=== PATIENT | female | born 1960 | race Caucasian/White ===

== ENCOUNTER 2023-12-27 11:27 | Day surgery (SDC) | payer MEDICARE, MEDICAID ==
[~2023-12-27] VITALS: Ht 167.6 cm; Wt 105.7 kg
[2023-12-27] VITALS (16 sets, daily range): BP systolic 167–216; BP diastolic 92–122; PULSE 17–91; RESP 12–19; TEMP 98.1; O2SAT 95–99
[~2023-12-27 11:27] MED LIST: ASPI-1265 PO; BAC10T PO; DOCU100C38 PO; HYDR12.522 PO; HYDR1TAB PO; IBUP-1984 PO; LISI40TA13 PO; NIA500ERT PO
[2023-12-27] MEDS ORDERED: ROSU20TA98 PO (12:24)
[2023-12-27] MEDS ORDERED: METF-1203 PO (12:24)
[2023-12-27] MEDS ORDERED: AMLO-381 PO (12:24)
[2023-12-27] MEDS ORDERED: NAPR220T67 PO (12:30)
[2023-12-27] MEDS: diphenhydrAMINE 25mg capsule PO PRN (12:37)
[2023-12-27] MEDS: normal saline 1,000 ML IV SCH (12:37)
[2023-12-27] MEDS: LORazepam 0.5 MG tablet PO PRN (12:37)
[2023-12-27 12:39] LABS: BASOPHILS # (AUTO) 0.1 X10'3 (0-0.2); BASOPHILS % (AUTO) 0.9 % (0-1); EOSINOPHILS # (AUTO) 0.2 X10'3 (0-0.9); EOSINOPHILS % (AUTO) 1.6 % (0-6); HEMATOCRIT 39.2 % (35.0-45.0); HEMOGLOBIN 12.8 g/dl (12.0-16.0); LYMPHOCYTES # (AUTO) 1.3 X10'3 (1.1-4.8); MEAN CORPUSCULAR HEMOGLOBIN 27.9 PG (27.0-31.0); MEAN CORPUSCULAR HGB CONC 32.6 g/dL (33.0-36.5); MEAN CORPUSCULAR VOLUME 85.8 FL (78-98); MEAN PLATELET VOLUME 9.7 FL (7.4-10.4); MONOCYTES # (AUTO) 0.5 X10'3 (0-0.9); MONOCYTES % (AUTO) 5.5 % (2-12); NEUTROPHILS # (AUTO) 7.7 X10'3 (1.8-7.7); PLATELET COUNT 202 X10'3 (140-440); RED BLOOD COUNT 4.57 X10'6 (4.20-5.60); RED CELL DISTRIBUTION WIDTH 13.1 % (11.5-14.5); WHITE BLOOD COUNT 9.7 X10'3 (4.5-11.0)
[2023-12-27 12:53] LABS: ALBUMIN 3.5 G/DL (3.4-5.0); ANION GAP 8 (8-16); BLOOD UREA NITROGEN 33 MG/DL (7-18); BUN/CREATININE RATIO 22.8 (10.0-20.0); CALCIUM 8.5 MG/DL (8.5-10.1); CHLORIDE 105 MMOL/L (99-107); CHOL/HDL RATIO 3.1 (0.00-4.99); CHOLESTEROL 114 MG/DL (0-200); CREATININE 1.45 MG/DL (0.40-0.90); GLUCOSE 98 MG/DL (70-104); HDL CHOLESTEROL 37 MG/DL (35-60); LDL CHOLESTEROL 57 MG/DL (50-100); POTASSIUM 4.3 MMOL/L (3.5-5.1); SODIUM 138 MMOL/L (135-145); TOTAL CARBON DIOXIDE 25.3 MMOL/L (24-32); TRIGLYCERIDES 206 MG/DL (20-135); eCRCL 37 ML/MIN; eGFR 36 ML/MIN
[2023-12-27 14:54] LABS: APTT 31 SECONDS (22-32); PROTHROMBIN TIME 10.5 SECONDS (9.0-12.0)
[2023-12-27] MEDS ORDERED: fentaNYL/PF 50MCG/1 ML 2ML syringe ONE (15:28)
[2023-12-27] MEDS ORDERED: midazolam 1 mg/ML 2ml injection ONE (15:28)
[2023-12-27] MEDS ORDERED: iohexol 350MG/ML 100ml bottle IV ONE (15:28)
[2023-12-27] MEDS ORDERED: LIDOcaine 1% (10mg/ml) 2ml vial ONE (15:28)
[2023-12-27] MEDS ORDERED: heparin 1,000unit/ml 10ml vial 10 ML ONE (15:28)
[2023-12-27] MEDS ORDERED: verapamil 2.5 mg/ml inj IV ONE (15:28)
[2023-12-27] MEDS ORDERED: nitroGLYCERIN 500mcg/5mL D5W 5 ML IV ONE (15:32)
[2023-12-27] MEDS ORDERED: iohexol 350 MG/ML 50ML vial IV ONE (16:10)
[2023-12-27] MEDS ORDERED: hydrALAZINE 20mg/ml inj. ONE (16:19)
[2023-12-27] MEDS ORDERED: HYDROcodone/acetaminophen 5mg/325mg tablet PO PRN (17:00)
[2023-12-27] MEDS ORDERED: HYDROcodone/acetaminophen 10/325mg tab PO PRN (17:00)
[2023-12-27] MEDS: hydrALAZINE 20mg/ml inj. IV ONE (18:10)
[2023-12-27] MEDS: amLODIPine 5mg tablet PO ONE (18:38)
[2023-12-27] MEDS: lisinopril 20mg tablet PO SCH (18:39)
[2023-12-27] MEDS: labetalol 20mg/4ml (5mg/ml) syringe IV ONE (19:24)
[2023-12-27] MEDS: cloNIDine 0.1 mg tablet PO ONE (19:25)
== END 2023-12-27 20:00 | disposition home or self-care (01) ==
LOC: SSTAY O 11:27
PROVIDERS: ATTEND Internal Medicine Interventional Cardiology
DX: R94.39 Abnormal result of other cardiovascular function study (principal); I25.10 Atherosclerotic heart disease of native coronary artery without angina pectoris; I10 Essential (primary) hypertension; E11.9 Type 2 diabetes mellitus without complications; E78.00 Pure hypercholesterolemia, unspecified; M10.9 Gout, unspecified; G47.33 Obstructive sleep apnea (adult) (pediatric); Z79.84 Long term (current) use of oral hypoglycemic drugs; Z79.899 Other long term (current) drug therapy; Z95.1 Presence of aortocoronary bypass graft
CPT/HCPCS: 36415; 80048; 80061; 85025; 85610; 85730; 93005; 93459; 99152; 99153; A6258; A6402; C1894; J0360; J1644; J2003; J2250; J3010; J3490; J7030; Q0163; Q9967; Z7610; C1769